=== PATIENT | male | born 1995 | race Asian ===

== ENCOUNTER 2020-08-29 08:25 | Outpatient (CLI) | payer BC | END 2020-08-29 08:26 | disposition home or self-care (01) | LOC: NM 08:25 | PROVIDERS: ATTEND Internal Medicine Endocrinology, Diabetes & Metabolism | DX: E05.90 Thyrotoxicosis, unspecified without thyrotoxic crisis or storm (principal) | CPT/HCPCS: 78014; A9516 ==

== ENCOUNTER 2020-09-29 12:34 | Outpatient (CLI) | payer BC | END 2020-09-29 12:35 | disposition home or self-care (01) | LOC: NM 12:34 | PROVIDERS: ATTEND Internal Medicine Endocrinology, Diabetes & Metabolism | DX: E05.80 Other thyrotoxicosis without thyrotoxic crisis or storm (principal); E04.1 Nontoxic single thyroid nodule; E05.90 Thyrotoxicosis, unspecified without thyrotoxic crisis or storm | CPT/HCPCS: 79005; A9517 ==